=== PATIENT | female | born 1955 | race Caucasian/White ===

== ENCOUNTER → 2018-05-20 | Outpatient (CLI) | payer OTHER ==
[~2018-05-20] MED LIST: ALBU90OI61 INH; ALPR.5 PO; AMLO5 PO; ASCO500 PO; ATOR10; ATOR20 PO; Ambien5 MG PO; Amitiza24 MCG PO; BISA10S PR; CARDIA XT PO; CHOL10002 PO; CLON.1; CLON.2 PO; CYAN1000I IM; CYCL10; CYCL10 PO; Cardizem CD 12120 MG PO; Cartia Xt240 MG PO; Cipro500 MG PO; Colace100 MG PO; DILT120 PO; DILT180 PO; DILT240 PO; DILT30 PO; DILT300 PO; DOCSEN PO; DOCU100 PO; DULO30 PO; DULO60; DULO60 PO; Desyrel50 MG; ESOM20 PO; ESTR.05TPB; ESTR.05TPB TOP; ESTR.05TPW TOP; ESTRODERM TOP; FENT50TP TOP; FLUO10; FLUO20; FLUT.05NI; FLUT110OIA IH; FLUT110OIA INH; FOSI10; Flonase 0.05% N16 GM; GLUC500 PO; GLUCOSAMINE PO; HYDACE10B PO; HYDACE5 PO; HYDACE7.5; HYDMOR2 PO; HYDMOR4 PO; HYDMOR8; HYDMOR8 PO; HYDR.5TC TOP; HYDR1TAB94 PO; HYOS.125 SL; IBUHYD; IPRAOI INH; Inderal80 MG PO; LAVAP17G PO; LEVSOD25 PO; LEVSOD50 PO; LIDO5TP TOP; LISI20; LORA10ER PO; MELO7.5 PO; META800 PO; METO10 PO; METO25ER PO; METO50 PO; METO5A PO; MIRALAX17 GM PO; MONT10T PO; MORP30; MOVANTIK25 MG PO; MULVITMIND PO; NITR.4SL SL; OMEP20ER; OXYACE5T PO; OXYC40ER PO; PANT20 PO; PANT40; PANT40 PO; PRIM50; PRIM50 PO; PRIMADONE PO; PROC10 PO; PROM25 PO; PROM25S PR; PROP120ER PO; PROP40; PROP80ER PO; PROPRANOLOL 40 MG PO; Phenergan25 MG PR; Protonix40 MG PO; SUCR1 PO; SULTRIDS PO; TIAG12; TRAZ100; TRAZ100 PO; TRIM100 PO; TYLENOL PM PO; VERA120 PO; VERA120ERB PO; VICODIN HP 10-1 EACH PO; Valium5 MG PO; Vitamin C100 M1 PO; Zofran Odt4 MG PO; Zofran4 MG PO; Zofran8 MG PO; [UNRECOGNIZED DRUG - OTHER] TOP; [UNRECOGNIZED DRUG - OTHER] TOP
[2018-05-20 11:57] LABS: BASOPHILS ABSOLUTE AUTO 0.05 K/mm3 (0.00-0.23); BASOPHILS PERCENT AUTO 0 % (0-2); EOSINOPHILS ABSOLUTE AUTO 0.02 K/mm3 (0.00-0.68); EOSINOPHILS PERCENT AUTO 0 % (0-6); Hematocrit 44.9 % (33.0-51.0); Hemoglobin 14.6 g/dL (11.5-16.0); IMMATURE GRAN PERCENT AUTO 1 % (0-1); LYMPHOCYTES ABSOLUTE AUTO 2.97 K/mm3 (0.84-5.20); LYMPHOCYTES PERCENT AUTO 17 % (21-46); MONOCYTES ABSOLUTE AUTO 1.48 K/mm3 (0.16-1.47); MONOCYTES PERCENT AUTO 9 % (4-13); Mean Corpuscular HGB Conc 32.5 g/dL (31.5-36.5); Mean Corpuscular Volume 92 fL (80-100); Mean Platelet Volume 9.8 fL (9.1-12.4); NEUTROPHILS ABSOLUTE AUTO 12.63 K/mm3 (1.96-9.15); NEUTROPHILS PERCENT AUTO 73 % (41-73); Platelet Count 306 K/mm3 (150-400); RDW Coefficient Variation 13.4 % (11.7-14.2); RDW Standard Deviation 45.3 fL (35.1-46.3); Red Blood Cell Count 4.87 M/mm3 (3.80-5.20); White Blood Cell Count 17.25 K/mm3 (4.00-11.30)
[2018-05-20 12:06] LABS: Bilirubin, Total 0.5 mg/dL (0.1-1.0); Bun/Creatinine Ratio 21.1 (12.0-20.0); Calcium, Blood 9.9 mg/dL (8.5-10.1); Creatinine, Blood 1.09 mg/dL (0.40-1.00); Globulin, Blood 3.9 g/dL (2.2-4.0); Potassium, Blood 4.6 mmol/L (3.5-5.5); Total Protein, Blood 7.9 g/dL (6.4-8.2)
== END | disposition home or self-care (01) ==
LOC: LAB SHORT 11:51 → LAB EV 11:51
PROVIDERS: Physician Assistant
DX: E03.9 Hypothyroidism, unspecified (principal); R53.83 Other fatigue
CPT/HCPCS: 80053; 84443; 85025

== ENCOUNTER → 2018-05-21 | Outpatient (CLI) | payer OTHER ==
[2018-05-21 13:50] LABS: BASOPHILS ABSOLUTE AUTO 0.06 K/mm3 (0.00-0.23); BASOPHILS PERCENT AUTO 0 % (0-2); EOSINOPHILS ABSOLUTE AUTO 0.07 K/mm3 (0.00-0.68); EOSINOPHILS PERCENT AUTO 0 % (0-6); IMMATURE GRAN ABSOLUTE AUTO 0.09 K/mm3 (0.00-0.10); IMMATURE GRAN PERCENT AUTO 1 % (0-1); LYMPHOCYTES ABSOLUTE AUTO 2.68 K/mm3 (0.84-5.20); LYMPHOCYTES PERCENT AUTO 14 % (21-46); MONOCYTES ABSOLUTE AUTO 1.57 K/mm3 (0.16-1.47); MONOCYTES PERCENT AUTO 9 % (4-13); Mean Corpuscular HGB 30.2 pg (26.0-34.0); Mean Corpuscular HGB Conc 33.3 g/dL (31.5-36.5); Mean Corpuscular Volume 91 fL (80-100); Mean Platelet Volume 9.6 fL (9.1-12.4); NEUTROPHILS ABSOLUTE AUTO 14.09 K/mm3 (1.96-9.15); NEUTROPHILS PERCENT AUTO 76 % (41-73); Platelet Count 327 K/mm3 (150-400); RDW Coefficient Variation 13.5 % (11.7-14.2); RDW Standard Deviation 44.3 fL (35.1-46.3); Red Blood Cell Count 4.63 M/mm3 (3.80-5.20); White Blood Cell Count 18.56 K/mm3 (4.00-11.30)
== END | disposition home or self-care (01) ==
LOC: LAB EV 13:45 → LAB SHORT 13:45
PROVIDERS: Physician Assistant
DX: R53.83 Other fatigue (principal)
CPT/HCPCS: 85025; 85651

== ENCOUNTER 2018-07-11 00:19 | Day surgery (SDC) | payer OTHER | END 2018-07-11 10:18 | disposition home or self-care (01) | LOC: ATC 00:19 | DX: E24.8 Other Cushing's syndrome (principal) | CPT/HCPCS: 36415; 80400; 82533; 96372; J0834 ==

== ENCOUNTER → 2018-09-12 | Outpatient (CLI) | payer OTHER ==
[2018-09-13 13:47] LABS: Stool Occult Bld Immuno 1 Positive (NEGATIVE)
== END | disposition home or self-care (01) ==
LOC: LAB SHORT 14:30 → LAB 14:30 → LAB FUT 09-11 15:15
PROVIDERS: Internal Medicine Gastroenterology
DX: Z12.11 Encounter for screening for malignant neoplasm of colon (principal)
CPT/HCPCS: G0328

== ENCOUNTER 2018-10-02 10:33 | Day surgery (SDC) | payer OTHER ==
[~2018-10-02] VITALS: Ht 162.6 cm; Wt 87.7 kg
[~2018-10-02 10:33] MED LIST changes: +AIMOVIG AU140 MG/1 M SC; +ATOR40TA PO; +BACL10 PO; +CLIMARA1 EACH TOP; +Flovent 110 MCG12 GM INH; +LEVO-T50 MCG PO; +LIDO700A20 TOP; +LISI20 PO; +MINERAL OIL HEAV1 ML PO; +Nexium40 MG PO; +Nitrostat0.3 MG SL; +Norco 10-325 T1 EACH PO; +ONDA4 PO; +Primidone50 MG PO; +TRAZ150T57 PO; +VOLTAREN100 GM TOP
--- NOTE | 2018-10-02 11:38 | NUR ---
10/02/18 1138 Kasey Govea 5 IV ATTEMPTS 2 INRFA VALVE 1 IN RW VALVE1 IN LW VALVE 1 IN LFA VALVE 1 SUCCESSFUL IV IN LW PT TOW
== END 2018-10-02 12:47 | disposition home or self-care (01) ==
LOC: ORSCSDS 10:33
PROVIDERS: Internal Medicine Gastroenterology
PROC: 0DBL8ZX Excision of Transverse Colon, Via Natural or Artificial Opening Endoscopic, Diagnostic (ICD-10-PCS; principal; 2018-10-02 12:00)
PROC: 0DBK8ZX Excision of Ascending Colon, Via Natural or Artificial Opening Endoscopic, Diagnostic (ICD-10-PCS; principal; 2018-10-02 12:00)
DX: Z12.11 Encounter for screening for malignant neoplasm of colon (principal); D12.2 Benign neoplasm of ascending colon; D12.3 Benign neoplasm of transverse colon; K64.1 Second degree hemorrhoids; K57.30 Diverticulosis of large intestine without perforation or abscess without bleeding; M79.7 Fibromyalgia; K21.9 Gastro-esophageal reflux disease without esophagitis; G47.33 Obstructive sleep apnea (adult) (pediatric); F32.9 Major depressive disorder, single episode, unspecified; Z79.899 Other long term (current) drug therapy
CPT/HCPCS: 88305; J2704; J7120

== ENCOUNTER → 2020-01-13 | Outpatient (CLI) | payer OTHER ==
[2020-01-13 17:03] LABS: Osmolality, Urine 700 mos/kg (15-1400)
[2020-01-13 17:48] LABS: Sodium, Urine, Random 62 mmol/L (20-110)
== END | disposition home or self-care (01) ==
LOC: LAB SHORT 13:40 → LAB 13:40
PROVIDERS: Family Medicine
DX: E87.1 Hypo-osmolality and hyponatremia (principal)
CPT/HCPCS: 83935; 84300

== ENCOUNTER 2020-04-21 15:19 | Emergency (ER) | payer OTHER ==
[~2020-04-21] VITALS: Ht 162.6 cm; Wt 73.5 kg
[2020-04-21 16:25] LABS: Alanine Aminotransfer (ALT/SGP 23 U/L (12-78); Albumin, Blood 4.1 g/dL (3.4-5.0); Albumin/Globulin Ratio 1.5 (0.8-1.8); Alk Phos 76 U/L (50-136); Anion Gap 3 mmol/L (6-16); Aspartate Aminotrans (AST/SGOT 17 U/L (12-37); Bilirubin, Total 0.6 mg/dL (0.1-1.0); Blood Urea Nitrogen 13 mg/dL (8-24); Bun/Creatinine Ratio 17.2 (12.0-20.0); CO2, Blood 29 mmol/L (21-32); Chloride, Blood 106 mmol/L (98-108); Creatinine, Blood 0.76 mg/dL (0.40-1.00); Globulin, Blood 2.8 g/dL (2.2-4.0); Glomerular Filtration Rate >60 (60-); Glucose, Blood 85 mg/dL (70-99); Potassium, Blood 3.9 mmol/L (3.5-5.5); Sodium, Blood 138 mmol/L (136-145); Total Protein, Blood 6.9 g/dL (6.4-8.2); Troponin I <0.015 ng/mL (0.000-0.040)
== END 2020-04-21 16:57 | disposition left against medical advice (07) ==
LOC: ER 15:19
PROVIDERS: Physician Assistant
DX: R03.0 Elevated blood-pressure reading, without diagnosis of hypertension (principal); R51.9 Headache, unspecified; Z53.20 Procedure and treatment not carried out because of patient's decision for unspecified reasons; Z79.899 Other long term (current) drug therapy
CPT/HCPCS: 36415; 71046; 80053; 84484; 93005; 93010; 99283-25

== ENCOUNTER 2020-04-26 10:18 | Emergency (ER) | payer OTHER ==
[~2020-04-26] VITALS: Ht 162.6 cm; Wt 72.6 kg
== END 2020-04-26 12:09 | disposition home or self-care (01) ==
LOC: ER 10:18
DX: I10 Essential (primary) hypertension (principal); E03.9 Hypothyroidism, unspecified; Z88.0 Allergy status to penicillin; Z88.8 Allergy status to other drugs, medicaments and biological substances; Z88.5 Allergy status to narcotic agent; Z91.09 Other allergy status, other than to drugs and biological substances; Z88.6 Allergy status to analgesic agent; Z79.899 Other long term (current) drug therapy; Z91.040 Latex allergy status
CPT/HCPCS: 99283

== ENCOUNTER 2022-09-14 11:40 | Day surgery (SDC) | payer OTHER ==
[~2022-09-14] VITALS: Ht 162.6 cm; Wt 89.5 kg
[2022-09-14 15:01] VITALS: BP 152/70
== END 2022-09-14 15:06 | disposition home or self-care (01) ==
LOC: ORSCSDS 11:40
PROVIDERS: Student in an Organized Health Care Education/Training Program
PROC: 0DBK8ZX Excision of Ascending Colon, Via Natural or Artificial Opening Endoscopic, Diagnostic (ICD-10-PCS; principal; 2022-09-14 13:15)
PROC: 0DBM8ZX Excision of Descending Colon, Via Natural or Artificial Opening Endoscopic, Diagnostic (ICD-10-PCS; principal; 2022-09-14 13:15)
PROC: 0DBN8ZX Excision of Sigmoid Colon, Via Natural or Artificial Opening Endoscopic, Diagnostic (ICD-10-PCS; principal; 2022-09-14 13:15)
PROC: 0DB48ZX Excision of Esophagogastric Junction, Via Natural or Artificial Opening Endoscopic, Diagnostic (ICD-10-PCS; principal; 2022-09-14 13:15)
PROC: 0DB78ZX Excision of Stomach, Pylorus, Via Natural or Artificial Opening Endoscopic, Diagnostic (ICD-10-PCS; principal; 2022-09-14 13:15)
PROC: 0DBL8ZX Excision of Transverse Colon, Via Natural or Artificial Opening Endoscopic, Diagnostic (ICD-10-PCS; principal; 2022-09-14 13:15)
PROC: 0DB58ZX Excision of Esophagus, Via Natural or Artificial Opening Endoscopic, Diagnostic (ICD-10-PCS; principal; 2022-09-14 13:15)
DX: K21.9 Gastro-esophageal reflux disease without esophagitis (principal); K31.84 Gastroparesis; Z12.11 Encounter for screening for malignant neoplasm of colon; Z86.010 Personal history of colon polyps; D12.2 Benign neoplasm of ascending colon; D12.3 Benign neoplasm of transverse colon; D12.4 Benign neoplasm of descending colon; K63.5 Polyp of colon; M79.7 Fibromyalgia; Z79.899 Other long term (current) drug therapy; I10 Essential (primary) hypertension; G47.33 Obstructive sleep apnea (adult) (pediatric); J45.909 Unspecified asthma, uncomplicated; E03.9 Hypothyroidism, unspecified; E66.9 Obesity, unspecified; Z68.33 Body mass index [BMI] 33.0-33.9, adult
CPT/HCPCS: 88305; 88342; J0330; J0461; J2405; J2704; J7120; Q9968

== ENCOUNTER → 2023-02-14 | Outpatient (CLI) | payer OTHER ==
[~2023-02-14] MED LIST changes: +AMLODIPINE BESYL5 MG PO; +BREO ELLIPTA 21 EAC1 IH; +SPIRIVA RESPIMAT4 G2 IH
== END | disposition home or self-care (01) ==
LOC: LAB 17:38 → LAB SHORT 17:38
DX: L08.0 Pyoderma (principal)
CPT/HCPCS: 87070; 87077; 87186; 87205

== ENCOUNTER 2023-03-19 02:23 | Inpatient (IN) | payer OTHER ==
[~2023-03-19] VITALS: Ht 167.6 cm; Wt 91.9 kg
[2023-03-19] VITALS (95 sets, daily range): BP systolic 38–181; BP diastolic 25–151
[~2023-03-19 02:23] MED LIST changes: -AMLODIPINE BESYL5 MG PO; -LEVO-T50 MCG PO; +NAPR500 PO
[2023-03-19 02:55] LABS: Calcium, Ionized (POC) 1.07 mmol/L (1.10-1.46); Chloride (POC) 102 mmol/L (98-108); Creatinine (POC) 2.4 mg/dL (0.6-1.0); Glucose (ISTAT POC) 217 mg/dL (70-99); Potassium (POC) 3.7 mmol/L (3.5-5.5); Sodium (POC) 134 mmol/L (135-148); Total CO2 (POC) 12 mmol/L (21-32)
[2023-03-19 03:01] LABS: Hematocrit 43.4 % (33.0-51.0); Hemoglobin 14.1 g/dL (11.5-16.0); Mean Corpuscular HGB 30.5 pg (26.0-34.0); Mean Corpuscular HGB Conc 32.5 g/dL (31.5-36.5); Mean Corpuscular Volume 94 fL (80-100); Mean Platelet Volume 9.5 fL (9.1-12.4); NRBC ABSOLUTE 0.17 K/mm3 (0.00-0.02); NRBC Auto 0.5 /100 WBC (0.0-0.2); Platelet Count 319 K/mm3 (150-400); RDW Coefficient Variation 13.8 % (11.7-14.2); RDW Standard Deviation 47.6 fL (35.1-46.3); Red Blood Cell Count 4.62 M/mm3 (3.80-5.20); White Blood Cell Count 31.22 K/mm3 (4.00-11.30)
[2023-03-19 03:05] LABS: Source, Urine Foley catheter
[2023-03-19 03:13] LABS: Bilirubin, Urine Neg (Neg); Blood, Urine 2+ (Neg); Glucose Qualitative, Urine Neg (Neg); Ketones, Urine 2+ (Neg); Leukocyte Esterase, Urine Neg (Neg); Nitrite, Urine Neg (Neg); Protein, Urine 4+ (Neg); Urobilinogen, Urine NORM (Normal)
[2023-03-19 03:20] LABS: Amorphous Light (0-Heavy); Appearance, Urine Clear (Clear); Bacteria Few /hpf; Color, Urine Yellow (P-Yellow); Red Blood Cells, Urine 0-2 /hpf (0-2); Squamous Epithelial Cells Mod /hpf (Few); Transitional Epithelial Cells Few /hpf (0-Rare); White Blood Cells, Urine Not Seen /hpf (0-5)
[2023-03-19 03:25] LABS: BAND PERCENT MAN 2 % (0-8); BASOPHILS PERCENT MAN 0 % (0-2); EOSINOPHILS PERCENT MAN 0 % (0-6); LYMPHOCYTES % ATYPICAL MANUAL 1 % (0-0); LYMPHOCYTES ABSOLUTE MAN 8.11 K/mm3 (0.84-5.20); LYMPHOCYTES PERCENT MAN 25 % (21-46); METAMYELOCYTE ABSOLUTE MAN 0.62 K/mm3 (0.00-0.00); METAMYELOCYTE PERCENT MAN 2 % (0-0); MONOCYTES PERCENT MAN 9 % (4-13); MYELOCYTE ABSOLUTE MAN 0.31 K/mm3 (0.00-0.00); MYELOCYTE PERCENT MAN 1 % (0-0); NEUTROPHILS ABSOLUTE MAN 19.35 K/mm3 (1.96-9.15); SEG NEUTROPHILS PERCENT MAN 60 % (41-73); TOTAL CELLS COUNTED 100
[2023-03-19 03:26] LABS: Magnesium, Blood 2.2 mg/dL (1.6-2.4)
[2023-03-19 03:42] LABS: Albumin, Blood 2.1 g/dL (3.4-5.0); Albumin/Globulin Ratio 0.7 (0.8-1.8); Bilirubin, Total 0.3 mg/dL (0.1-1.0); Bun/Creatinine Ratio 12.3 (12.0-20.0); Calcium, Blood 8.2 mg/dL (8.5-10.1); Creatinine, Blood 2.2 mg/dL (0.40-1.00); Globulin, Blood 2.9 g/dL (2.2-4.0); Potassium, Blood 3.9 mmol/L (3.5-5.5)
[2023-03-19 03:45] LABS: U Amphetamine Screen Not Detected; U Barbituate Screen DETECTED; U Benzodiazapine Screen Not Detected; U Buprenorphine Screen Not Detected; U Cannabinoids Screen Not Detected; U Cocaine Screen Not Detected; U Methadone Screen Not Detected; U Methamphetamine Screen Not Detected; U Opiates Screen DETECTED; U Oxycodone Screen Not Detected; U Phencyclidine Screen Not Detected; U Propoxyphene Screen Not Detected
[2023-03-19 06:24] LABS: International Normalized Ratio 1.49; Prothrombin Time Results 15.3 Sec (9.7-11.5)
[2023-03-19 08:39] LABS: Influenza A, PCR NEGATIVE (NEGATIVE); Influenza B, PCR NEGATIVE (NEGATIVE); Resp Syncytial Virus, PCR NEGATIVE (NEGATIVE); SARS-Cov-2 (COVID-19) PCR, MMC NEGATIVE (NEGATIVE)
[2023-03-19 09:03] LABS: EOSINOPHILS ABSOLUTE AUTO 0.01 K/mm3 (0.00-0.68); EOSINOPHILS PERCENT AUTO 0 % (0-6); Hematocrit 47.9 % (33.0-51.0); Hemoglobin 15.9 g/dL (11.5-16.0); IMMATURE GRAN ABSOLUTE AUTO 1.75 K/mm3 (0.00-0.10); IMMATURE GRAN PERCENT AUTO 4 % (0-1); LYMPHOCYTES ABSOLUTE AUTO 3.49 K/mm3 (0.84-5.20); LYMPHOCYTES PERCENT AUTO 9 % (21-46); MONOCYTES ABSOLUTE AUTO 2.83 K/mm3 (0.16-1.47); MONOCYTES PERCENT AUTO 7 % (4-13); Mean Corpuscular HGB 30.5 pg (26.0-34.0); Mean Corpuscular HGB Conc 33.2 g/dL (31.5-36.5); Mean Corpuscular Volume 92 fL (80-100); Mean Platelet Volume 10.1 fL (9.1-12.4); NEUTROPHILS ABSOLUTE AUTO 31.91 K/mm3 (1.96-9.15); NEUTROPHILS PERCENT AUTO 80 % (41-73); NRBC Auto 0.2 /100 WBC (0.0-0.2); Platelet Count 221 K/mm3 (150-400); RDW Standard Deviation 47.2 fL (35.1-46.3); Red Blood Cell Count 5.21 M/mm3 (3.80-5.20); White Blood Cell Count 40.07 K/mm3 (4.00-11.30)
[2023-03-19 09:05] LABS: BASOPHILS ABSOLUTE AUTO 0.08 K/mm3 (0.00-0.23); BASOPHILS PERCENT AUTO 0 % (0-2)
[2023-03-19 09:51] LABS: Albumin, Blood 2.5 g/dL (3.4-5.0); Albumin/Globulin Ratio 0.7 (0.8-1.8); Bilirubin, Total 0.6 mg/dL (0.1-1.0); Bun/Creatinine Ratio 15.4 (12.0-20.0); Calcium, Blood 9.4 mg/dL (8.5-10.1); Creatinine, Blood 1.88 mg/dL (0.40-1.00); Globulin, Blood 3.6 g/dL (2.2-4.0); Magnesium, Blood 2.2 mg/dL (1.6-2.4); Phosphorus, Blood 5.5 mg/dL (2.5-4.9); Total Protein, Blood 6.1 g/dL (6.4-8.2)
[2023-03-19 09:57] LABS: PCO2 Arterial 26.5 mmHg (35-45); PO2 Arterial 234 mmHg (80-100); pH Blood Arterial 7.52 (7.35-7.45)
[2023-03-19 10:24] LABS: Beta-hydroxybutyrate 4.2 mg/dL (0.2-2.8)
--- NOTE | 2023-03-19 18:35 | NUR ---
Summary. Pt arrived to ICU at approximately 0730. Sedated on propofol at 10 mcg/kg/min, ventilated via ETT. Vent settings: AC/VC 16/350/5/75%. Propofol infusion unchanged during shift, vent settings changed to AC/VC 12/350/5/30%. Pt on levophed and vasopressin upon arrival, OG tube in place, villalta in place. Levophed and vasopressin titrated off this am, see flowsheet. OG tube found to have a leak and replaced this afternoon, placement verified by xray. Rectal tube placed for multiple liquid BMs, draining to gravity. Villalta remains in place. Lopressor started for high heart rate, see EMAR. VS stable ATT, see chart for further details. Will report off to nightshift RN.
[2023-03-20] VITALS (43 sets, daily range): BP systolic 107–180; BP diastolic 54–123
[2023-03-20 04:24] LABS: Hematocrit 39.5 % (33.0-51.0); Hemoglobin 13.2 g/dL (11.5-16.0); Mean Corpuscular HGB 30.8 pg (26.0-34.0); Mean Corpuscular HGB Conc 33.4 g/dL (31.5-36.5); Mean Corpuscular Volume 92 fL (80-100); Mean Platelet Volume 10.8 fL (9.1-12.4); NRBC ABSOLUTE 0.21 K/mm3 (0.00-0.02); NRBC Auto 0.8 /100 WBC (0.0-0.2); Platelet Count 119 K/mm3 (150-400); RDW Coefficient Variation 14.4 % (11.7-14.2); Red Blood Cell Count 4.28 M/mm3 (3.80-5.20); White Blood Cell Count 26.31 K/mm3 (4.00-11.30)
[2023-03-20 04:48] LABS: Magnesium, Blood 1.5 mg/dL (1.6-2.4)
[2023-03-20 04:52] LABS: BAND PERCENT MAN 3 % (0-8); BASOPHILS PERCENT MAN 0 % (0-2); EOSINOPHILS PERCENT MAN 0 % (0-6); LYMPHOCYTES ABSOLUTE MAN 2.89 K/mm3 (0.84-5.20); LYMPHOCYTES PERCENT MAN 11 % (21-46); METAMYELOCYTE ABSOLUTE MAN 0.52 K/mm3 (0.00-0.00); METAMYELOCYTE PERCENT MAN 2 % (0-0); MONOCYTES ABSOLUTE MAN 0.26 K/mm3 (0.16-1.47); MONOCYTES PERCENT MAN 1 % (4-13); MYELOCYTE ABSOLUTE MAN 0.26 K/mm3 (0.00-0.00); MYELOCYTE PERCENT MAN 1 % (0-0); NEUTROPHILS ABSOLUTE MAN 22.36 K/mm3 (1.96-9.15); SEG NEUTROPHILS PERCENT MAN 82 % (41-73); TOTAL CELLS COUNTED 100
[2023-03-20 05:15] LABS: Albumin, Blood 2.6 g/dL (3.4-5.0); Bilirubin, Total 0.7 mg/dL (0.1-1.0); Bun/Creatinine Ratio 19.8 (12.0-20.0); Calcium, Blood 8.7 mg/dL (8.5-10.1); Creatinine, Blood 2.37 mg/dL (0.40-1.00); Globulin, Blood 2.5 g/dL (2.2-4.0); Phosphorus, Blood 4.4 mg/dL (2.5-4.9); Potassium, Blood 3.6 mmol/L (3.5-5.5); Total Protein, Blood 5.1 g/dL (6.4-8.2)
[2023-03-20 06:09] LABS: PCO2 Arterial 28.8 mmHg (35-45); PO2 Arterial 79.6 mmHg (80-100)
--- NOTE | 2023-03-20 10:46 | NUR ---
"Spiritual Care | Pt. Request Pt. is intubated and mostly non repsonsive. Pts. daughter and niece are present and welcome my visit. Facilitate a life review with the family, who verbalize the importance of my connecting with the Pts. spouse who will be in later in the day. Niece communicated that Pt. most recently attended a local congregation orthodoxy. Listened with interest and empathy. Prayed for Pt. 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
[2023-03-20] MEDS ORDERED: TRAZ100 PO (12:32)
[2023-03-20] MEDS ORDERED: DULO60 PO (12:33)
[2023-03-20] MEDS ORDERED: ARMODAFINIL250 MG PO (12:41)
[2023-03-20] MEDS ORDERED: MONT10T PO (12:44)
[2023-03-20] MEDS ORDERED: LISI20 PO (12:45)
[2023-03-20] MEDS ORDERED: DIAZ5 PO (12:45)
[2023-03-20] MEDS ORDERED: BUPRENORPHINE HC2 MG SL (12:50)
[2023-03-20] MEDS ORDERED: HYDCHL25 PO (12:53)
[2023-03-20] MEDS ORDERED: TELM40 PO (12:54)
[2023-03-20] MEDS ORDERED: BACL10 PO (12:59)
[2023-03-20] MEDS ORDERED: ESZO2 PO (13:12)
[2023-03-20] MEDS ORDERED: MOTEGRITY2 MG PO (13:13)
[2023-03-20] MEDS ORDERED: ESTRADIOL42.5 GM VAG (13:15)
[2023-03-20] MEDS ORDERED: STIOLTO RESPIMAT4 G1 INH (13:17)
--- NOTE | 2023-03-20 14:48 | NUR ---
0800 ASSUMED CARE IN AM... PT ON VENT. SEDATION ON WITH 10MCG OF PROPOFOL. PATIENT WITHDRAWLS TO PAINFUL STIMULI TO RIGHT ARM APPROPRIATELY AND BILAT LOWER EXTREMET WITHDRAWL TO PAINFUL STIMULI HOWEVER HER LOWER EXTREM. BILAT LEGS ARE STIFF TO BEND. HER LEFT FOOT EXTENDS AND POINTS WITH STIMULI AND IS VERY DIFFICULT TO BEND. HER LEFT ARM IS FLACCID. HER PUPILS ARE EQUAL AND REACTIVE TO LIGHT, + GAG AND COUGH, SHE HAS A CENTRAL LINE QUAD LUMEN TO LEFT IJ AND THE WHITE PORT WILL DRAWL BLOOD BACK FROM IT ONLY AT THIS TIME. SHE GOT POTASSIUM REPLACEMENT AND MAGNESIUM REPLACEMENT TODAY. DR MEDINA ORDERED VANCO FOR HER. SHE HAS A BEAN IN PLACE WITH YELLOW URINE OUT AND A RECTAL TUBE IN PLACE WITH LIGHT BROWN STOOL OUT FROM IT. FAMILY TO BE IN ROOM THIS AM AND IN LATER.
--- NOTE | 2023-03-20 15:01 | NUR ---
1200 UPDATE FAMILY WAS IN ROOM WITH DR BROWN AND WENT OF INCIDENT DETAILS WITH HIM ABOUT THE PATIENT. BROUGHT IN HER MEDICATION. LORIE MASSEY DID MEDICATION UPDATE. WAITING TO HEAR BACK FROM [facility]. HER URINE OUT PUT HAS BEEN GOOD/STEADY MIN. 30CC /HR. SHE HAS HAD LITTLE OUT OF RECTAL TUBE BUT IS STILL LOOSE IN CONSISTENCY. PROPOFOL HAS BEEN OFF SINCE 0810 THIS AM. PATIENT IS STILL FLACCID ON LEFT ARM AND RIGHT ARM REACHES TO TUBE OR FACE OR ANYWHERE THERE IS PAINFUL STIMULI; PURPOSEFUL BUT NOT TO COMMAND. TOES STILL BOUNCE AROUND IN BED AND LEGS BILAT. ARE STIFF AND DIFFICULT TO BEND AND TOES HAVE EXTENSTION WITH STIMULI. PUPILS ARE SIZE 6 BILAT BUT WITH LIGHT THEY ARE BRISK TO REACT DOWN TO A 3MM BILATERALLY.
[2023-03-20 15:23] LABS: Base Excess Venous 1.1 mmol/L; Bicarbonate Venous 25.2 mmol/L (24.0-30.0); PCO2 Venous 29.4 mmHg (38-42); PO2 Venous 32.3 mmHg (38-42); pH Blood Venous 7.52 (7.34-7.37)
--- NOTE | 2023-03-20 18:09 | NUR ---
END OF SHIFT REPORT: PATIENT REMAINS INTUBATED WITHOUT ANY SEDATION ON. PATIENT HAS NOT CHANGED NEURO STATUS SINCE NOON TODAY. SHE REMAINS WITH A LEFT ARM FLACCID AND A RIGHT ARM THAT WILL RAISE OFF BED AND REACH TOWARD FACE OR STIMULI. PATIENT IS GETTING SLIGHTLY MORE HYPERTENSIVE METOPROLOL GIVEN DOWN OG TODAY DIRECTED. PATIENT STILL HAS BILATERALLY STIFF LOWER EXTREMETIES WTIH STIMULI HOWEVER SHE DOES FLEX HER FEET TO PAINFUL STIMULI BUT WHEN LEGS ARE PASSIVLEY MOVED HER TOES ABNORMALLY EXTENDED AND GO TO A POINT. SHE HAS EQUAL AND REACTIVE PUPILS BILATERALLY BRISK WITH LIGHT STIMULI AND CONJUGATED. FEVER HAS COME DOWN TO 99.3 TODAY WITHOUT ANY ADDED PYRECTIC. PATIEINTS PULSE IS TACHYCARDIC AND BP IS ELEVATING. LABETALOL TO BE GIVEN FOR SBP GREATER THAN 180. URINE OUT FROM EBAN IN PLACE WITH ADEQUATE OUTPUT. RECTAL TUBE IN PLACE FOR LIQUID STOOL, RANCID SMELL. FAMILY HAS BEEN AT BEDSIDE ALL DAY, AND WILL BE BACK FOR AM ROUNDING.
--- NOTE | 2023-03-20 20:00 | NUR ---
ASSUMED CARE PT IS INTUBATED W/ SPO2 >92% ON /5/30%; MAP >65; ST IN THE 110'S. PT OPENS EYES TO NAME, BUT DOES NOT FOLLOW COMMANDS OR MAINTAIN FOCUS W/ EYES. LEFT EYE IS 6 AND RIGHT IS 4; OBSERVED DURING ADMIT BY HOSPITALIST PER NOTE AND REPORT. LEFT ARM IS FLACCID W/ PAINFUL STIMULI; PT WILL REACT W/ RIGHT SIDE TO LEFT SIDE PAINFUL STIMULI. PT INTERMITTENTLY TWITCHES; INCREASES W/ ANY STIMULI. RECTAL TUBE AND BEAN CATHETER PATENT AND DRAINING TO GRAVITY.
[2023-03-21] VITALS (91 sets, daily range): BP systolic 130–190; BP diastolic 53–92
[2023-03-21] MEDS ORDERED: ALLEGRA ALLERG180 MG PO (01:01)
[2023-03-21] MEDS ORDERED: BREO ELLIPTA 21 EAC1 (01:06)
[2023-03-21] MEDS ORDERED: CEPH500 PO (01:10)
[2023-03-21] MEDS ORDERED: EYE ALLERGY ITCH5 ML (01:12)
[2023-03-21] MEDS ORDERED: CYCL10 PO (01:15)
[2023-03-21 03:57] LABS: BASOPHILS ABSOLUTE AUTO 0.08 K/mm3 (0.00-0.23); BASOPHILS PERCENT AUTO 0 % (0-2); EOSINOPHILS ABSOLUTE AUTO 0.02 K/mm3 (0.00-0.68); EOSINOPHILS PERCENT AUTO 0 % (0-6); Hematocrit 32.1 % (33.0-51.0); IMMATURE GRAN ABSOLUTE AUTO 0.17 K/mm3 (0.00-0.10); IMMATURE GRAN PERCENT AUTO 1 % (0-1); LYMPHOCYTES ABSOLUTE AUTO 1.32 K/mm3 (0.84-5.20); LYMPHOCYTES PERCENT AUTO 7 % (21-46); MONOCYTES ABSOLUTE AUTO 0.97 K/mm3 (0.16-1.47); MONOCYTES PERCENT AUTO 5 % (4-13); Mean Corpuscular HGB 30.9 pg (26.0-34.0); Mean Corpuscular HGB Conc 34.3 g/dL (31.5-36.5); Mean Corpuscular Volume 90 fL (80-100); Mean Platelet Volume 11.5 fL (9.1-12.4); NEUTROPHILS ABSOLUTE AUTO 17.18 K/mm3 (1.96-9.15); NEUTROPHILS PERCENT AUTO 87 % (41-73); NRBC ABSOLUTE 0.03 K/mm3 (0.00-0.02); NRBC Auto 0.2 /100 WBC (0.0-0.2); Platelet Count 74 K/mm3 (150-400); RDW Coefficient Variation 14.2 % (11.7-14.2); RDW Standard Deviation 46.9 fL (35.1-46.3); Red Blood Cell Count 3.56 M/mm3 (3.80-5.20); White Blood Cell Count 19.74 K/mm3 (4.00-11.30)
--- NOTE | 2023-03-21 04:10 | NUR ---
UPDATE WHILE PERFORMING ORAL CARE, PT APPEARED TO "PERK" UP MORE. PT IS NOW NODDING HEAD WHEN ASKED, BUT STILL DOES NOT SQUEEZE HANDS OR FOLLOW ANY OTHER COMMANDS.
--- NOTE | 2023-03-21 04:26 | NUR ---
UPDATE PT NOW ABLE TO SQUEEZE RIGHT HAND; LEFT HAND STILL FLACCID.
[2023-03-21 04:28] LABS: Albumin, Blood 2.3 g/dL (3.4-5.0); Anion Gap 7 mmol/L (6-16); Blood Urea Nitrogen 42 mg/dL (8-24); Bun/Creatinine Ratio 21.3 (12.0-20.0); CO2, Blood 26 mmol/L (21-32); Calcium, Blood 8.7 mg/dL (8.5-10.1); Chloride, Blood 108 mmol/L (98-108); Creatinine, Blood 1.97 mg/dL (0.40-1.00); Glomerular Filtration Rate 27 (60-); Glucose, Blood 109 mg/dL (70-99); Phosphorus, Blood 3.3 mg/dL (2.5-4.9); Potassium, Blood 3.2 mmol/L (3.5-5.5); Sodium, Blood 141 mmol/L (136-145); Vancomycin, Random 31.4 ug/mL
[2023-03-21 04:52] LABS: Magnesium, Blood 2.1 mg/dL (1.6-2.4)
--- NOTE | 2023-03-21 05:54 | NUR ---
SHIFT SUMMARY PT RESTING QUIETLY T/O NIGHT OFF SEDATION. PT HAS BEEN HYPERTENSIVE T/O NIGHT; DR RITTER NOTIFIED AND MEDICATED PER EMAR. SBP 160'S AT TIME OF THIS NOTE. RECTAL TUBE AND BEAN CATHETER PATENT AND DRAINING TO GRAVITY. ST 100-110'S. NO OTHER EVENTS T/O NIGHT. (SEE PREVIOUS NOTE FOR CHANGE IN NEURO STATUS; PT FOLLOWING SOME COMMANDS).
--- NOTE | 2023-03-21 07:15 | NUR ---
Assumed care of pt at 0700. Bedside report received from Anselmo MELO. Pt not receiving any sedation. Opens eyes to verbal stimulus. Able to raise eyebrows, signal maintainer helper with R hand, wiggle bilateral toes on command. Pupils 4 mm right side and 6 mm left. Left side sluggish, right side brisk. Patient nods head "yes" when asked if she is having pain. SR per monitor. BP high. SpO2 99% with ventilator ACVC 12/350/5/30% ETCO2 25. 7.5 cm ETT 23 cm at gums.
--- NOTE | 2023-03-21 11:26 | NUR ---
Placed on SBT at 1000 with 10/5 and 30% FiO2. RR 20s. Tolerated well. Family at bedside updated. Has since been changed to 7/5 and 30%. RR 20s. Tidal volumes 400-450 mL. SpO2 90% or greater. ETCO2 28. SR per monitor. BP stable. Pt did receive 40 mg labetalol prior to starting SBT due to hypertension and tachycardia.
--- NOTE | 2023-03-21 17:10 | NUR ---
Family in to see pt again this afternoon. Family discussed plan of care with Dr De Anda and Dr Bhatti. Pt remains on SBT with 10/5 and 30% FiO2. Tolerating well. Plan to extubate tomorrow.
--- NOTE | 2023-03-21 17:40 | NUR ---
SUMMARY Neuro: Follows commands. Able to open mouth, lift R arm, wiggle bilat toes, when instructed to do so. L arm remains flaccid. This arm taken out of trestraints. Pupils remain unequal. L side larger than R side. Remains off sedation. Resp: Lungs clear t/o. Large amount of tenacious mccray sputum aspirated from ETT by RT. Sent to lab for bacterial culture. Vent remains on PS with 10/5 and 30%. SpO2 95%. Cardiac: SR-ST per monitor. Currently rate 83. SBP in 160s. Pt receiving 1800 dose of metoprolol PT. GI: TF started per orders. Rectal tube remains in place with liquid brown drainage. : Good urine output from villalta catheter. Skin: Unchanged from initial assessment. Hair combed and braided today. Family contact: Several family members in to see patient. Family pleasant, asks appropriate questions, and is agreeable with plan of care. When educating family about plans for nutrition if pt is extubated tomorrow, pt's spouse describes patient gagging and dry heaving on puree textures and she often drinks broth instead because it's easier for her to tolerate.
--- NOTE | 2023-03-21 20:21 | NUR ---
ASSUMED CARE PT IS INTUBATED; ALERT AND ORIENTED TO SELF, SURROUNDINGS, AND SITUATION (ASSESSED ORIENTATION BY ASKING YES OR NO QUESTIONS; PT COMMUNICATES WELL W/ NODDING/SHAKING OF HEAD.). PT FOLLOWS COMMANDS AND IS ABLE TO MALT HOUSE KILN OPERATOR RIGHT HAND/SLIGHTLY LIFT RIGHT ARM; WIGGLES TOES; AND NODS/SHAKES HEADS UPON REQUEST. LEFT ARM IS STILL FLACCID. PT DENIES PAIN, NODS HEAD WHEN ASKED IF PT IS "RELATIVELY" COMFORTABLE. LEFT EYE REMAINS MORE DILATED THAN RIGHT; 4-6. SPO2 >92%- VENTILATOR ON SPONTANEOUS 10//30%. SBP IN THE 140-150'S; NSR IN THE 70-80'S. PT RESTING QUIETLY AT THIS TIME.
--- NOTE | 2023-03-21 21:06 | NUR ---
UPDATE PT HAVING LOW TIDAL VOLUMES; 200~, WHILE ASLEEP. RT CALLED AND SWITCHING BACK TO PREVIOUS SETTINGS @ 12/350/5/30%. PT TIDAL VOLUMES 350+ WHILE AWAKE.
[2023-03-22] VITALS (83 sets, daily range): BP systolic 139–198; BP diastolic 41–86
[2023-03-22 03:24] LABS: BASOPHILS ABSOLUTE AUTO 0.06 K/mm3 (0.00-0.23); BASOPHILS PERCENT AUTO 0 % (0-2); EOSINOPHILS ABSOLUTE AUTO 0.03 K/mm3 (0.00-0.68); EOSINOPHILS PERCENT AUTO 0 % (0-6); Hematocrit 29.1 % (33.0-51.0); Hemoglobin 9.7 g/dL (11.5-16.0); IMMATURE GRAN ABSOLUTE AUTO 0.15 K/mm3 (0.00-0.10); IMMATURE GRAN PERCENT AUTO 1 % (0-1); LYMPHOCYTES ABSOLUTE AUTO 1.06 K/mm3 (0.84-5.20); LYMPHOCYTES PERCENT AUTO 6 % (21-46); MONOCYTES ABSOLUTE AUTO 1.19 K/mm3 (0.16-1.47); MONOCYTES PERCENT AUTO 7 % (4-13); Mean Corpuscular HGB 31.2 pg (26.0-34.0); Mean Corpuscular HGB Conc 33.3 g/dL (31.5-36.5); Mean Corpuscular Volume 94 fL (80-100); Mean Platelet Volume 12.3 fL (9.1-12.4); NEUTROPHILS ABSOLUTE AUTO 15.11 K/mm3 (1.96-9.15); NEUTROPHILS PERCENT AUTO 86 % (41-73); NRBC ABSOLUTE 0.03 K/mm3 (0.00-0.02); NRBC Auto 0.2 /100 WBC (0.0-0.2); Platelet Count 66 K/mm3 (150-400); RDW Coefficient Variation 14.7 % (11.7-14.2); Red Blood Cell Count 3.11 M/mm3 (3.80-5.20)
[2023-03-22 03:43] LABS: Albumin, Blood 2.1 g/dL (3.4-5.0); Bun/Creatinine Ratio 25.5 (12.0-20.0); Calcium, Blood 8.6 mg/dL (8.5-10.1); Creatinine, Blood 1.45 mg/dL (0.40-1.00); Magnesium, Blood 2.2 mg/dL (1.6-2.4); Phosphorus, Blood 1.9 mg/dL (2.5-4.9); Potassium, Blood 4.1 mmol/L (3.5-5.5)
--- NOTE | 2023-03-22 04:05 | NUR ---
UPDATE WALKED INTO PT'S ROOM TO DRAW LABS AND BLOOD WAS NOTED TO HAVE LEAKED OUT FROM CENTRAL LINE. DRESSING WAS SATURATED AND A 5 INCH~ CHENEGA BLOOD STAIN WAS NOTED ON GREEN SHEET (GREEN SHEET WAS DAMP, NOT SATURATED W/ BLOOD). REASSESSED PT'S NEURO STATUS; PT WAS INITIALLY SLOW TO WAKE UP. LINENS WERE CHANGED AND NEURO STATUS WAS AGAIN REASSESSED AND PT NOW RESPONSIVE SHE WAS AT BEGINNING OF SHIFT. CONTINUES TO FOLLOW COMMANDS APPROPRIATELY.
--- NOTE | 2023-03-22 06:38 | NUR ---
SHIFT SUMMARY PT CONTINUES TO WAKE SPONTANEOUSLY/VERBAL STIMULI. SPO2 >92% ON VENTILATOR 12/350/5/30%; MAP >65; NSR 70/80'S. OUTSIDE OF PREVIOUS NOTE; NO ACUTE EVENTS. PT IS CURRENTLY RESTING QUIETLY. BEAN PATENT AND DRAINING TO GRAVITY.
--- NOTE | 2023-03-22 07:00 | NUR ---
ASSUMPTION OF CARE: ASSUMED CARE OF PATIENT WITH ESTIVEN VINCENT RN. PATIENT RESTING IN BED. PATIENT APPEARS COMFORTABLE AND RELAXED. PATIENT ATTEMPTING TO OPEN EYES IN RESPONSE TO SAYING PATIENT'S NAME. NO FOLLOWING OF COMMANDS NOTED AT THIS TIME. VENT SETTINGS AC/VC 12/350/5/30%. SPO2 97%. LUNG SOUNDS CLEAR. SBP IN THE 170S. BEAN IN PLACE FREELY DRAINING CLEAR, YELLOW URINE. TUBE FEED RUNNING AT GOAL RATE OF 30ML/HR. DISCUSSED WITH DR. LAN DECREASE IN PLATELET COUNT DAILY SINCE ADMISSION. NEW ORDERS TO DC SQ HEPARIN.
[2023-03-22 12:24] LABS: Albumin/Globulin Ratio 0.7 (0.8-1.8); Bilirubin, Direct 0.1 mg/dL (0.0-0.3); Bilirubin, Indirect 0.5 mg/dL (0.1-0.7); Bilirubin, Total 0.6 mg/dL (0.1-1.0); Globulin, Blood 2.9 g/dL (2.2-4.0)
[2023-03-22 13:18] LABS: BASOPHILS ABSOLUTE AUTO 0.08 K/mm3 (0.00-0.23); BASOPHILS PERCENT AUTO 0 % (0-2); EOSINOPHILS ABSOLUTE AUTO 0.04 K/mm3 (0.00-0.68); EOSINOPHILS PERCENT AUTO 0 % (0-6); Hematocrit 31.1 % (33.0-51.0); Hemoglobin 10.3 g/dL (11.5-16.0); IMMATURE GRAN PERCENT AUTO 1 % (0-1); LYMPHOCYTES ABSOLUTE AUTO 1.05 K/mm3 (0.84-5.20); LYMPHOCYTES PERCENT AUTO 6 % (21-46); MONOCYTES ABSOLUTE AUTO 1.48 K/mm3 (0.16-1.47); MONOCYTES PERCENT AUTO 8 % (4-13); Mean Corpuscular HGB 30.8 pg (26.0-34.0); Mean Corpuscular HGB Conc 33.1 g/dL (31.5-36.5); Mean Corpuscular Volume 93 fL (80-100); Mean Platelet Volume 12.5 fL (9.1-12.4); NEUTROPHILS ABSOLUTE AUTO 15.83 K/mm3 (1.96-9.15); NEUTROPHILS PERCENT AUTO 85 % (41-73); NRBC ABSOLUTE 0.04 K/mm3 (0.00-0.02); NRBC Auto 0.2 /100 WBC (0.0-0.2); Platelet Count 78 K/mm3 (150-400); RDW Coefficient Variation 14.7 % (11.7-14.2); RDW Standard Deviation 50.2 fL (35.1-46.3); Red Blood Cell Count 3.34 M/mm3 (3.80-5.20); White Blood Cell Count 18.68 K/mm3 (4.00-11.30)
--- NOTE | 2023-03-22 15:18 | NUR ---
Case Conference for 03/21 Met with pt's and son yesterday afternoon. At that time, the pt remained intubated. The pt lives with her , and he reports both he and the patient take care of each other normally. The is currently in an electric scooter and has [address] via n/c. He reports he has not been able to fall asleep since his has been in the hospital. Pt's son is visiting from [place]. The pt remains a full-code, and I have not attempted to discuss this with pt's or son yet, as they have not been ready for that conversation.
[2023-03-22 18:03] LABS: Adenovirus F 40/41 Not Detected (NOT DETECT); Astrovirus Not Detected (NOT DETECT); Campylobacter Sp Not Detected (NOT DETECT); Cryptosporidium Not Detected (NOT DETECT); Cyclospora Cayetanensis Not Detected (NOT DETECT); E. Coli O157 Not Detected (NOT DETECT); Entamoeba Histolytica Not Detected (NOT DETECT); Enteroaggregative E. coli-EAEC Not Detected (NOT DETECT); Enteropathogenic E. coli-EPEC Not Detected (NOT DETECT); Enterotoxigenic E. coli-ETEC Not Detected (NOT DETECT); Giardia Lamblia Not Detected (NOT DETECT); Norovirus GI/GII Not Detected (NOT DETECT); Plesiomonas Shigelloides Not Detected (NOT DETECT); Rotavirus A Not Detected (NOT DETECT); Salmonella Sp Not Detected (NOT DETECT); Sapovirus Not Detected (NOT DETECT); Shiga Toxin-prod E. coli-STEC Not Detected (NOT DETECT); Shigella/Enteroin E. coli-EIEC Not Detected (NOT DETECT); Vibrio Cholerae Not Detected (NOT DETECT); Vibrio Sp Not Detected (NOT DETECT); Yersinia Enterocolitica Not Detected (NOT DETECT)
--- NOTE | 2023-03-22 18:11 | NUR ---
SHIFT SUMMARY: NEURO: PATIENT APPEARED COMFORTABLE THROUGHOUT THE SHIFT. PATIENT STARTED THE SHIFT WITH BARELY BEING ABLE TO OPEN EYES TO VERBAL STIMULI. THE DAY PROGRESSED, PATIENT EASILY OPENED EYES TO VERBAL STIMULI. PATIENT LOCALIZED TO NOXIOUS STIMULI IN RIGHT ARM, RIGHT LEG AND LEFT LEG. PATIENT DID NOT FOLLOW DIRECTIONS TODAY. LEFT PUPIL CONTINUES TO BE SLUGGISH. CORNEAL REFLEX PRESENT. TRANSITIONED PAIN MEDICATIONS TO PRN. RESPIRATORY: PATIENT TRANSITIONED TO SPONTANEOUS THIS MORNING WITH 10/5 SUPPORT. PATIENT TOLERATED WELL UNTIL MID AFTERNOON. PATIENT STARTED TO HAVE TIDAL VOLUMES AT 275-290. TRANSITIONED BACK TO PRIOR SETTINGS AC/VC 12/350/5/30%. LUNG SOUNDS CLEAR/DIMINISHED THROUGHOUT. COUGH AND GAG REFLEX NOTED. CARDIAC: PATIENT CONTINUED TO EXPERIENCE ELEVATED BLOOD PRESSURES THAT SEEM TO BE UNRELATED TO PAIN. SBP 165-194. HR IN THE 80S-90S. MEDICATED PER SCHEDULED MEDICATIONS AND PRN HYDRALZINE AND LABETOLOL. PATIENT TOLERATED WELL. DISCUSSED WITH DR. BROWN. PATIENT GIVEN ONE TIME DOSE OF IV LASIX. IMPROVED URINE OUTPUT AND COLOR NOTED AFTER ADMINISTRATION OF LASIX. GI/: TUBE FEED CONTINUES AT GOAL OF 30ML/HR WITH FLUSH Q4HR. ABDOMEN SOFT WITH HYPOACTIVE BOWEL SOUNDS. LIQUID, BROWN, GREEN, YELLOW INCONTINENT STOOLS. SAMPLE SENT FOR GI PANEL. CATHETER IN PLACE AND FLOWING FREELY. CLEAR, YELLOW OUTPUT. MUSCULOSKELETAL: PATIENT CONTINUES TO BE FLACCID IN LEFT ARM. TONE NOTED IN RIGHT ARM, RIGHT LEG, AND LEFT LEG. PATIENT LIFTED INTO CHAIR. PATIENT TOLERATED WELL. PSYCHSOCIAL: PATIENTS FAMILY AT BEDSIDE TODAY. FAMILY IS DISCOURAGED WITH PATIENT'S STATUS TODAY. PROVIDED STATUS UPDATES
--- NOTE | 2023-03-22 20:00 | NUR ---
ASSUME CARE: I have assumed care of this patient. At this time, her IV is saline locked. She is ventilated with FiO2 at 30%. Eyes are opening to voice and right wrist restraint is in place.
--- NOTE | 2023-03-22 22:41 | NUR ---
PROVIDER PHONE CALL: Dr De Anda notified of pt's current neuro status. No CT at this time. Baclofen and primidone canceled. SBP parameters discussed. See new orders.
[2023-03-23] VITALS (46 sets, daily range): BP systolic 144–198; BP diastolic 55–90
[2023-03-23 04:42] LABS: BASOPHILS ABSOLUTE AUTO 0.07 K/mm3 (0.00-0.23); BASOPHILS PERCENT AUTO 0 % (0-2); EOSINOPHILS ABSOLUTE AUTO 0.03 K/mm3 (0.00-0.68); EOSINOPHILS PERCENT AUTO 0 % (0-6); Hematocrit 30.4 % (33.0-51.0); IMMATURE GRAN ABSOLUTE AUTO 0.28 K/mm3 (0.00-0.10); IMMATURE GRAN PERCENT AUTO 2 % (0-1); LYMPHOCYTES ABSOLUTE AUTO 1.23 K/mm3 (0.84-5.20); LYMPHOCYTES PERCENT AUTO 6 % (21-46); MONOCYTES ABSOLUTE AUTO 2.13 K/mm3 (0.16-1.47); MONOCYTES PERCENT AUTO 11 % (4-13); Mean Corpuscular HGB 30.7 pg (26.0-34.0); Mean Corpuscular HGB Conc 32.9 g/dL (31.5-36.5); Mean Corpuscular Volume 93 fL (80-100); Mean Platelet Volume 12.5 fL (9.1-12.4); NEUTROPHILS ABSOLUTE AUTO 15.43 K/mm3 (1.96-9.15); NEUTROPHILS PERCENT AUTO 80 % (41-73); Platelet Count 108 K/mm3 (150-400); RDW Coefficient Variation 14.7 % (11.7-14.2); RDW Standard Deviation 50.4 fL (35.1-46.3); Red Blood Cell Count 3.26 M/mm3 (3.80-5.20); White Blood Cell Count 19.17 K/mm3 (4.00-11.30)
[2023-03-23 05:18] LABS: Albumin, Blood 2.1 g/dL (3.4-5.0); Anion Gap 6 mmol/L (6-16); Blood Urea Nitrogen 37 mg/dL (8-24); Bun/Creatinine Ratio 30.6 (12.0-20.0); CO2, Blood 24 mmol/L (21-32); Calcium, Blood 8.7 mg/dL (8.5-10.1); Chloride, Blood 112 mmol/L (98-108); Creatinine, Blood 1.21 mg/dL (0.40-1.00); Glomerular Filtration Rate 49 (60-); Glucose, Blood 120 mg/dL (70-99); Phosphorus, Blood 2.9 mg/dL (2.5-4.9); Potassium, Blood 4.2 mmol/L (3.5-5.5); Sodium, Blood 142 mmol/L (136-145)
--- NOTE | 2023-03-23 06:15 | NUR ---
SHIFT SUMMARY: Pt opens eyes to voice. She withdrawals RUE and RLE to painful stimuli. Right wrist restraint in place. Two liquid BMs overnight. Tmax 100. Anglin patent and draining to gravity. Several doses of PRN antihypertensives given overnight. Vent settings unchanged. Increased in-line secretions.
--- NOTE | 2023-03-23 07:15 | NUR ---
Assumed care of pt at 0700 with Veronika MELO. Report received from Jen MELO. Pt is intubated. Vent settings ACVC 12/350/5/30%. 7.5 cm ETT, 23 cm at teeth. No sedation. Pt opens eyes with verbal stimulus. Cough and gag intact. Withdraws extremities to painful stimulus, with exception of LUE which has been flaccid and no movement noted. TF per orders, pt tolerating well. [place] in to see patient during bedside report. Discussed sputum results, provider adjusted antibiotics and ordered CT head for mental status that is not improving.
[2023-03-23 08:25] LABS: Vancomycin, Random 10.2 ug/mL
--- NOTE | 2023-03-23 09:00 | NUR ---
Dr Peterson has seen patient and Dr Bhatti met provider at bedside to discuss plan of care. This RN in room. Plan to continue with existing orders and reassess.
--- NOTE | 2023-03-23 10:15 | NUR ---
Dr Peterson noted CT head results and met with family to discuss plan of care. Plan for CTA Head/Neck and consult neurology.
--- NOTE | 2023-03-23 11:15 | NUR ---
Patient's care discussed with family by this RN. Pt's sister and nelucio state that pt has chosen to be DNR previously and has documentation to support this. They understand that pt is a full code and state they think the patient should be a DNR. Encouraged these family members to discuss this with the patient's spouse, Dinh, who is alternate decision maker for the patient. They state concern and fear about bringing this up to him because he is her primary medical care evaluation specialist and deeply cares for her. They state that Dinh has several chronic health issues and believe that he is still alive solely to help take care of Nereyda. Casandra from palliative care updated with this information and will be in to meet with family.
--- NOTE | 2023-03-23 16:00 | NUR ---
ASSUMING CARE OF PT TO ASSIST WITH CARE.
--- NOTE | 2023-03-23 16:16 | NUR ---
SPiritual Care Visit. Pt. is intubated and not responsive. Family members are at bedside and welcome my visit. Facilitated an updated life review and re-established rapport. Prayed for Pt. Family members verbalize gratitude for the spiritual care visit.
--- NOTE | 2023-03-23 16:46 | NUR ---
PT INTUBATED, NO SEDATION. PT TAKEN TO CTA OF HEAD AND NECK WITHOUT ISSUE. PT RAISES R HAND SPONTANEOUSLY AND OPENS EYE'S SPONTANEOUSLY. NOT ATTEMPTING AT ETT THOUGH. VENT SETTINGS AC 12, TV 420, PEEP 8, FIO2 30%. FAMILY AT BEDSIDE.
--- NOTE | 2023-03-23 17:40 | NUR ---
Review of pt in rounds. States she ahs document of DNR. Met with family. states she would not want recussitation. He asked family for help but struggling to make decision. Dr zazueta notified and will follow up. is replaying to event at home over and over and feeling bad he did not act sooner. Sisters are angry thing not hapening faster for care. Advised that part of care is time to see response and give he a chance. ended conversation due to their fatigue. Met with again for support advised him to rest so decisions can be made.
--- NOTE | 2023-03-23 18:00 | NUR ---
EEG BEING DONE NOW
--- NOTE | 2023-03-23 19:00 | NUR ---
ASSUME CARE: I have assumed care of this patient.
[2023-03-24] VITALS (29 sets, daily range): BP systolic 131–201; BP diastolic 49–103
[2023-03-24 05:10] LABS: BASOPHILS ABSOLUTE AUTO 0.06 K/mm3 (0.00-0.23); BASOPHILS PERCENT AUTO 0 % (0-2); EOSINOPHILS ABSOLUTE AUTO 0.12 K/mm3 (0.00-0.68); EOSINOPHILS PERCENT AUTO 1 % (0-6); Hemoglobin 10.2 g/dL (11.5-16.0); IMMATURE GRAN ABSOLUTE AUTO 0.74 K/mm3 (0.00-0.10); IMMATURE GRAN PERCENT AUTO 4 % (0-1); LYMPHOCYTES ABSOLUTE AUTO 1.57 K/mm3 (0.84-5.20); LYMPHOCYTES PERCENT AUTO 9 % (21-46); MONOCYTES ABSOLUTE AUTO 2.41 K/mm3 (0.16-1.47); MONOCYTES PERCENT AUTO 13 % (4-13); Mean Corpuscular HGB 30.6 pg (26.0-34.0); Mean Corpuscular HGB Conc 32.9 g/dL (31.5-36.5); Mean Corpuscular Volume 93 fL (80-100); Mean Platelet Volume 11.8 fL (9.1-12.4); NEUTROPHILS ABSOLUTE AUTO 13.42 K/mm3 (1.96-9.15); NEUTROPHILS PERCENT AUTO 73 % (41-73); Platelet Count 158 K/mm3 (150-400); RDW Coefficient Variation 14.9 % (11.7-14.2); RDW Standard Deviation 50.1 fL (35.1-46.3); Red Blood Cell Count 3.33 M/mm3 (3.80-5.20); White Blood Cell Count 18.32 K/mm3 (4.00-11.30)
[2023-03-24 05:37] LABS: Albumin, Blood 2.4 g/dL (3.4-5.0); Albumin/Globulin Ratio 0.7 (0.8-1.8); Bilirubin, Total 0.4 mg/dL (0.1-1.0); Calcium, Blood 9.5 mg/dL (8.5-10.1); Creatinine, Blood 1.25 mg/dL (0.40-1.00); Globulin, Blood 3.3 g/dL (2.2-4.0); Magnesium, Blood 2.2 mg/dL (1.6-2.4); Phosphorus, Blood 3.1 mg/dL (2.5-4.9); Potassium, Blood 3.9 mmol/L (3.5-5.5); Total Protein, Blood 5.7 g/dL (6.4-8.2)
--- NOTE | 2023-03-24 06:41 | NUR ---
SHIFT SUMMARY: Patient more alert this shift. She opens her eyes to voice and moves RUE, RLE, and LLE spontaneously. Restraint replaced on RUE as pt is weak, but is able to reach toward ETT. Fluid balance -2473. Tube feeds running at goal. Anglin patent and draining to gravity. Rectal tube with 150 mls out overnight.
--- NOTE | 2023-03-24 07:39 | NUR ---
ASSUMED CARE I ASSUMED CARE OF THIS PATIENT AT 0715. BEDSIDE REPORT COMPLETED WITH LORIE ASHLEY. PATIENT IS LYING IN BED WITH EYES CLOSED. INTERMITTENTLY MOVES [place] FEET SIDE TO SIDE WITH SLIGHT TREMOR. INTUBATED WITH 7.5 ETT 23CM @ TEETH. VENT SETTINGS AC/VC 12/420/5/30%. PATIENT RR 14-18 TV 420 AND SPO2 99%. PIVOT 1.5 @ GR OF 30ML/HR WITH 30ML Q4H WATER FLUSHES VIA OGT. BEAN PATENT AND DRANING PALE YELLOW CLEAR URINE TO GRAVITY. RECTAL TUBE PATENT AND DRAINING BROWN LIQUID BM TO GRAVITY. NO FAMILY OR VISITORS AT BEDSIDE. CL TO RT IJ SALINE LOCKED.
--- NOTE | 2023-03-24 09:42 | NUR ---
NEURO UPDATE PATIENT IS NOW MOVING RUE TO NOXIOUS STIMULI. BLINKING AND OPENING EYES, BUT NOT TRACKING OR FOLLOWING COMMANDS.
--- NOTE | 2023-03-24 10:14 | NUR ---
HTN/NEURO PATIENT BP IS CLIMBING, NOW 193/81. MEDICATED WITH LABETALOL 20MG IV PER EMAR. PATIENT IS EXHIBITING RHYTHMIC MOVEMENT OF BLE AND RUE. NOT REACHING FOR ANYTHING OR FOLLOWING COMMANDS. STILL OPENS EYES SPONTANEOUSLY AND BLINKS.
--- NOTE | 2023-03-24 11:03 | NUR ---
Spoke with Dr Bhatti and discussed case. Supportive visit for family this AM. Pt resting in bed and intubated. Pt's spouse, Pt's sister, and Pt's niece at bedside. Offered therapeutic conversation and answered questions. Brief review of plan of care. Spoke with Primary RN Trice and discussed case. Palliative Care will remain available
--- NOTE | 2023-03-24 12:04 | NUR ---
NEURO CHANGES/CT PATIENT MOVEMENTS ARE SPASTIC AND RHYTHMIC WITH NO MOVEMENT OF THE LUE. PUPILS ARE 3MM ON RT AND 6MM ON LT. LT PUPIL IS SLUGGISH. PATIENT OPENS EYES, BUT DOES NOT TRACK. CORE TEMP HAS INCREASED TO 100.2F. NO FOLLOWING OF COMMANDS. CALL MADE TO DR. DONALD TO NOTIFY OF NEURO CHANGES. REPEAT HEAD CT W/O CONTRAST ORDERED. WAITING FOR RT TO BE AVAILABLE FOR TRANSPORT TO CT.
--- NOTE | 2023-03-24 15:57 | NUR ---
UPDATE PATIENT IS ABLE TO NOD HEAD "YES/NO" APPROPRIATELY. NODS HEAD YES WHEN ASKED IF SHE IS IN PAIN. DR. LAN NOTIFIED OF UPDATED NEURO STATUS AND PAIN. FENTANYL 50MCG IV X 1 ORDERED AND ADMINISTERED. PATIENT CONTINUES WITH SPASTIC FLEXION OF BLE AND RUE. FAMILY AT BEDSIDE DURING THIS TIME.
--- NOTE | 2023-03-24 19:01 | NUR ---
SHIFT SUMMARY PATIENT REMAINS INTUBATED WITH VENT SETTINGS 12/420/5/30%. PATIENT WAS ABLE TO RESPOND TO YES/NO QUESTIONS. MEDICATED WITH VERSED 2MG THEN PRECEDEX STARTED. PRECEDEX CURRENTLY AT 0.3 MCG/KG/HR. TF REMAINS AT GR 30ML/HR. RECTAL TUBE HAD 250ML OUT AND BEAN HAD 900ML OUT. TMAX 100.4F, TYLENOL PER TUBE STARTED THIS SHIFT. SEE PREVIOUS NOTES FOR OTHER ANY OTHER CHANGES.
[2023-03-25] VITALS (25 sets, daily range): BP systolic 78–162; BP diastolic 31–75
[2023-03-25 04:10] LABS: BASOPHILS ABSOLUTE AUTO 0.05 K/mm3 (0.00-0.23); BASOPHILS PERCENT AUTO 0 % (0-2); EOSINOPHILS ABSOLUTE AUTO 0.13 K/mm3 (0.00-0.68); EOSINOPHILS PERCENT AUTO 1 % (0-6); Hematocrit 26.9 % (33.0-51.0); Hemoglobin 8.8 g/dL (11.5-16.0); IMMATURE GRAN ABSOLUTE AUTO 0.59 K/mm3 (0.00-0.10); IMMATURE GRAN PERCENT AUTO 4 % (0-1); LYMPHOCYTES ABSOLUTE AUTO 1.74 K/mm3 (0.84-5.20); LYMPHOCYTES PERCENT AUTO 11 % (21-46); MONOCYTES ABSOLUTE AUTO 2.34 K/mm3 (0.16-1.47); MONOCYTES PERCENT AUTO 15 % (4-13); Mean Corpuscular HGB 31.2 pg (26.0-34.0); Mean Corpuscular HGB Conc 32.7 g/dL (31.5-36.5); Mean Corpuscular Volume 95 fL (80-100); Mean Platelet Volume 11.2 fL (9.1-12.4); NEUTROPHILS ABSOLUTE AUTO 10.49 K/mm3 (1.96-9.15); NEUTROPHILS PERCENT AUTO 69 % (41-73); Platelet Count 173 K/mm3 (150-400); RDW Coefficient Variation 15.1 % (11.7-14.2); RDW Standard Deviation 52.3 fL (35.1-46.3); Red Blood Cell Count 2.82 M/mm3 (3.80-5.20); White Blood Cell Count 15.34 K/mm3 (4.00-11.30)
[2023-03-25 04:29] LABS: Albumin, Blood 2.2 g/dL (3.4-5.0); Albumin/Globulin Ratio 0.7 (0.8-1.8); Bilirubin, Total 0.4 mg/dL (0.1-1.0); Bun/Creatinine Ratio 37.1 (12.0-20.0); Calcium, Blood 9.1 mg/dL (8.5-10.1); Creatinine, Blood 1.16 mg/dL (0.40-1.00); Globulin, Blood 3.1 g/dL (2.2-4.0); Potassium, Blood 3.6 mmol/L (3.5-5.5); Total Protein, Blood 5.3 g/dL (6.4-8.2)
--- NOTE | 2023-03-25 07:04 | NUR ---
SHIFT SUMMARY: Pt able to nod head "yes" and "no". Hycet given for reports of pain. Precedex titrated up due to restlessness. Baclofen restarted. Large amount of in-line secretions suctioned overnight.
--- NOTE | 2023-03-25 08:08 | NUR ---
ASSUMED CARE I ASSUMED CARE OF THIS PATIENT AT 0700. PATIENT IS LYING IN BED MOVING BLE AND RUE SPASTICALLY AND RHTYHMICALLY. NODS HEAD YES/NO APPROPRAITELY, BUT DOES NOT FOLLOW COMMANDS TO STOP MOVING EXTREMITIES AND GENERAL FORECASTER HANDS. PRECEDEX INF @ 0.5 MCG/KG/HR, NS TKO. PIVOT 1.5 INF @ GR 30ML/HR WITH 30ML Q4H WATER FLUSHES. INTUBATED WITH 7.5 TUBE 23CM @ TEETH. SETTINGS 12/420/8/30% WITH RR 18-22, TV 420-450, SPO2 MID TO HIGH 90'S. RECTAL TUBE PATENT AND DRAINING TO GRAVITY AND BEAN PATENT AND DRAINING TO GRAVITY. AFEBRILE AT THIS TIME.
--- NOTE | 2023-03-25 09:35 | NUR ---
JERKING MOVEMENTS PATIENT CONTINUES WITH SPASTIC AND JERKING MOTIONS OF BLE. WHEN PATIENT WAS ASKED IF SHE COULD HOLD LEGS STILL SHE SHOOK HER HEAD NO. WHEN ASKED IF HER LEGS WERE FEELING TIRED SHE NODDED YES. SPOKE WITH DR. GRACE REGARDING STARTING VERSED GTT THE VERSED PUSH HELPED HER YESTERDAY WITH MINIMIZING BLE JERKING MOVEMENTS. NO ORDER FOR VERSED GTT GIVEN, PROLONGED EEG ORDERED INSTEAD. ORDER PLACED.
[2023-03-25 10:01] LABS: Vancomycin, Trough 15.1 ug/mL (5.0-10.0)
--- NOTE | 2023-03-25 13:33 | NUR ---
HYPOTENSION PATIENT BP BEGAN TRENDING DOWN TO MAPS 40'S-50'S, SEE VS. PERSISTENT STIMULI REQUIRED FOR PATIENT TO OPEN EYES AND NOT MAINTAINING ALERTNESS BEFORE. DR. GRACE NOTIFIED. NS 500ML BOLUS X 1 ORDERED. INF NOW VIA CL.
--- NOTE | 2023-03-25 13:58 | NUR ---
LEVOPHED BP REMAINS LOW WITH MAPS LESS THAN 60. DR. LAN AT BEDSIDE AND LEVOPHED GTT ORDERED. FAMILY AT BEDSIDE AND UPDATED.
--- NOTE | 2023-03-25 14:18 | NUR ---
BP IMPROVED LEVOPHED STARTED AT 2MCG/MIN. BP IMPROVING WITH MAPS GREATER THAN 65. PATIENT RESPONDING WITH HEAD NODDING AND OPENING EYES MORE FREQUENTLY. MOVING ALL EXTREMITIES EXCEPT FOR LUE SPASTICALLY.
--- NOTE | 2023-03-25 15:48 | NUR ---
COMFORT CARE PATIENT'S JUDY BEGAN ASKING QUESTIONS REGARDING PATIENT'S NEUROLOGICAL STATUS, NEXT STEPS WITH EXTUBATION, AND PROGNOSIS. THIS NURSE ANSWERED MANY QUESTIONS I COULD REGARDING STROKE DEFICITS, TRACHEOSTOMY, AND PEG TUBE PLACEMENT, THEN DR. LAN CALLED TO BEDSIDE TO ANSWER THE REST. ALL QUESTIONS ANSWERED WITH JUDY AND PATIENT'S SISTER MAGALY AT BEDSIDE. MAGALY AND JUDY REQUESTED THAT THE PATIENT BE MADE COMFORT CARE AND REQUESTED VOCAL PERFORMER TO BEDSIDE. PALLIATIVE CARE CALLED TO BEDSIDE.
--- NOTE | 2023-03-25 17:35 | NUR ---
Comfort Care order received. Spoke with Primary RN Trice who reports family and Dr Bhatti discussed goals of care. Family has elected to move forward with comfort care. Spoke with Dr Bhatti and ordered Morphine IV 1-5 mg every 30 minutes as needed, Ativan IV 1-2 mg ervery 2 hours as needed per V/O from Dr Bhatti. Dr Bhatti has already placed aditional comfort care medications. Offered supportive visit to family and answered questions. Encouraged family to speak with Pt and provide words of encouragement throughout process. Pt premedicated with comfort medications before extubation. Pt extubated by RT and Primary RN. Pt appears comfortable with no S/S of distress at this time. Ended visit to allow family to visit. Chaplain Headley at bedside. Palliative Care will remain available for symptom management and supportive visits.
--- NOTE | 2023-03-25 18:07 | NUR ---
Call back Spiritual Care: Family were in the room including pt's spouse Dinh, son Scar and others. Provided space for family to reflect. Pt and spouse have bernardo construct to bring perspective to situation. Dinh does say, "I'm sorry I have to do this to you." PC assistant corporation counsel given according to bernardo beliefs. Verbal prayer offered on behalf of pt and those present. Pt's spouse exits room with son and DIL for pt to be extubated. They return to room after action is performed. Dinh encouraged to lean on family during this time. Requested for his cloth folder hand to be called. This ticket writer contacts cloth folder hand to update on pt's status. Updated family on conversation with cloth folder hand. They voiced gratitude for the interventions.
--- NOTE | 2023-03-25 18:26 | NUR ---
SHIFT SUMMARY PATIENT TRANSITIONED TO COMFORT CARE AND EXTUBATED AT 1722. MEDICATED PER EMAR FOR COMFORT. FAMILY AT BEDSIDE. SEE PREVIOUS NOTES FOR ACUTE EVENTS DURING SHIFT.
--- NOTE | 2023-03-25 19:00 | NUR ---
ASSUME CARE: I have assumed care of this patient.
--- NOTE | 2023-03-25 21:30 | NUR ---
FAMILY UPDATE: Pt's spouse called and updated on her status. He states he would like a phone call once she passes and he would like to come see her in the hospital before she's transported to [facility] which is his chosen home.
--- NOTE | 2023-03-26 00:35 | NUR ---
ASSUMED CARE OF PT AT 2345 BEDSIDE REPORT RECEIVED FROM LORIE IRVING. PT HAS SNORING RESPIRATIONS AND APPEARS TO BE RELAXED. HR IS 120'S, SPO2 61-63% ON ROOM AIR. NO FAMILY AT BEDSIDE. COMFORT CARE PLAN ONGOING.
--- NOTE | 2023-03-26 06:04 | NUR ---
SHIFT SUMMARY PT MOVING BOTH LEGS AND RIGHT ARM, OPENS EYES, SIGHS AND MOVES HEAD. DOES NOT VERBALIZE, NO MOVEMENT OF LEFT ARM NOTED. REPOSITIONED FOR COMFORT. ORAL SUCTIONING ATTEMPTED. MEDICATED X1 WITH ROXANOL, ATROPINE DROPS GIVEN ORALLY X1. NO FAMILY AT BEDSIDE. RECTAL TUBE AND BEAN REMAIN IN PLACE. RECTAL TUBE FLUSHED TO ENSURE PATENCY. O2 SAT 58-71%, LUNGS COARSE. ST 120'S. CENTRAL LINE TO RIGHT IJ SALINE LOCKED. POC ONGOING.
--- NOTE | 2023-03-26 08:37 | NUR ---
ASSUMED CARE ASSUMED CARE OF THIS PATIENT AT 0700. PATIENT IS LYING IN BED NOW WITH FAMILY AND PIZZA BAKER AT BEDSIDE. SOFT MUSIC PLAYING. NO MEDICATIONS INF. PATIENT OPENS EYES TO VERBAL STIMULI, BUT DOES NOT MAKE EYE CONTACT OR TRACK. NO FOLLOWING OF COMMANDS. MEDICATED WITH ATROPINE FOR SECRETIONS PER EMAR. CENTRAL LINE IN PLACE FOR MEDICATION ADMINISTRATION. BEAN AND RECTAL TUBE IN PLACE FOR PATIENT COMFORT. BEDSIDE REPORT COMPLETED WITH LORIE ALVAREZ.
--- NOTE | 2023-03-26 12:15 | NUR ---
TRANSFER TO [facility] FLOOR NO CHANGES FROM ASSUMPTION OF CARE. PATIENTS FAMILY EAVING TO LUNCH AND NOTIFIED THAT PATIENT IS BEING TRANSFERRED TO ROOM 342. PATIENT TRANSFERRED WITH FAMILY JACKETS TO ROOM 342. REPORT GIVEN TO LORIE FERNANDEZ.
--- NOTE | 2023-03-26 13:01 | NUR ---
Spiritual care visit conducted. Immediately patient's , I step into patient's room. The room is packed with family who are grieving appropriately and I offer grief support and prayer. Family respond well and show signs of being comforted.
--- NOTE | 2023-03-26 14:37 | NUR ---
The pt passed peacefully surrounded by family today. Palliative care will remain available to family as needed.
--- NOTE | 2023-03-26 14:55 | NUR ---
BACKTIMED NOTE (6701) PT TRANSFERRED FROM ICU, REPORT RECEIVED FROM LORIE CAMPOS.
--- NOTE | 2023-03-26 17:36 | NUR ---
DISCHARGE NOTE PT PICKED UP BY [facility] FROM [facility] AT AROUND 1702. POST MORTEM CARE COMPLETED. FAMILY NOTIFIED OF THE TRANSPORT.
== END 2023-03-26 12:23 | DRG 64 ==
LOC: ER 02:23 → ERHOLD 02:24 → ER 02:29 → ICUE 06:01 → ERHOLD 06:01 → ICUE 07:35 → MEDS 03-26 11:28
PROVIDERS: Family Medicine; Internal Medicine; Internal Medicine Critical Care Medicine; Student in an Organized Health Care Education/Training Program; ADMIT Internal Medicine
PROC: 5A1955Z Respiratory Ventilation, Greater than 96 Consecutive Hours (ICD-10-PCS; principal; 2023-03-19)
PROC: 3E033XZ Introduction of Vasopressor into Peripheral Vein, Percutaneous Approach (ICD-10-PCS; 2023-03-19)
PROC: 0BH17EZ Insertion of Endotracheal Airway into Trachea, Via Natural or Artificial Opening (ICD-10-PCS; 2023-03-19)
PROC: 02HV33Z Insertion of Infusion Device into Superior Vena Cava, Percutaneous Approach (ICD-10-PCS; 2023-03-19)
PROC: 05JY3ZZ Inspection of Upper Vein, Percutaneous Approach (ICD-10-PCS; 2023-03-19)
PROC: 4A133R1 Monitoring of Arterial Saturation, Peripheral, Percutaneous Approach (ICD-10-PCS; 2023-03-19)
PROC: B24BZZZ Ultrasonography of Heart with Aorta (ICD-10-PCS; 2023-03-19)
PROC: 4A00X4Z Measurement of Central Nervous Electrical Activity, External Approach (ICD-10-PCS; 2023-03-23)
DX: I63.50 Cerebral infarction due to unspecified occlusion or stenosis of unspecified cerebral artery (principal); J15.212 Pneumonia due to Methicillin resistant Staphylococcus aureus; J96.01 Acute respiratory failure with hypoxia; N17.9 Acute kidney failure, unspecified; A04.72 Enterocolitis due to Clostridium difficile, not specified as recurrent; E87.1 Hypo-osmolality and hyponatremia; Z51.5 Encounter for palliative care; Z66 Do not resuscitate; G93.1 Anoxic brain damage, not elsewhere classified; E87.20 Acidosis, unspecified; K31.5 Obstruction of duodenum; R78.81 Bacteremia; R57.9 Shock, unspecified; I46.9 Cardiac arrest, cause unspecified; E87.6 Hypokalemia; G89.4 Chronic pain syndrome; M79.7 Fibromyalgia; D72.829 Elevated white blood cell count, unspecified; R77.8 Other specified abnormalities of plasma proteins; R94.5 Abnormal results of liver function studies; E83.39 Other disorders of phosphorus metabolism; E83.51 Hypocalcemia; I11.9 Hypertensive heart disease without heart failure; M15.9 Polyosteoarthritis, unspecified; E66.9 Obesity, unspecified; E03.9 Hypothyroidism, unspecified; G43.909 Migraine, unspecified, not intractable, without status migrainosus; R73.9 Hyperglycemia, unspecified; E86.9 Volume depletion, unspecified; K31.84 Gastroparesis; D69.6 Thrombocytopenia, unspecified; Z88.8 Allergy status to other drugs, medicaments and biological substances; Z88.0 Allergy status to penicillin; Z88.5 Allergy status to narcotic agent; Z91.040 Latex allergy status; Z79.51 Long term (current) use of inhaled steroids; Z79.899 Other long term (current) drug therapy; Z79.890 Hormone replacement therapy; Z90.5 Acquired absence of kidney; Z68.33 Body mass index [BMI] 33.0-33.9, adult; Z11.52 Encounter for screening for COVID-19
CPT/HCPCS: 0241U; 31500; 31720; 36415; 36556; 36600; 51702; 70450; 70496; 70498; 71045; 71260; 74177; 80047; 80053; 80069; 80202; 81001; 82010; 82248; 82330; 82803; 82947; 83605; 83735; 83880; 84100; 84145; 84484; 85014; 85025; 85610; 85730; 87040; 87070; 87077; 87147; 87186; 87205; 87324; 87507; 93005; 93010; 93306; 94002; 94003; 94762; 95819; 96365-59; 96366-59; 96368; 96375-59; 99291-25; 99292; A9270; C1751; C9113; J0360; J0692; J0696; J1170; J1644; J1650; J1940; J2060; J2250; J2270; J2371; J2405; J2704; J3010; J3370; J3475; J3480; J7030; J7040; J7050; J7060; J7120; P9047; Q9967